=== PATIENT | male | born 1970 | race Caucasian/White ===

== ENCOUNTER 2019-11-25 12:14 | Emergency (ER) | payer SELFPAY ==
[~2019-11-25] VITALS: Ht 188 cm; Wt 108.1 kg
[2019-11-25 12:20] VITALS: BP 146/88
--- NOTE | 2019-11-25 12:35 | PHYS DOC ---
Past History Past Medical History: No Pertinent History Past Surgical History: No Surgical History Smoking: Cigarettes Alcohol Use: Rarely Drug Use: None General Adult EDM: Chief Complaint: LACERATION/AVULSION HPI: HPI: 49-year-old male presents with laceration to right index finger when patient was trying to open a can at his place of employment. 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 Patient reports he was unable to get bleeding well controlled and therefore presents to the ER for further evaluation. Patient reports last tetanus shot less than 5 years ago. Review of Systems: Review of Systems: Constitutional: Denies fever or chills Eyes: Denies redness or eye pain HENT: Denies nasal congestion or sore throat Respiratory: Denies cough or shortness of breath Cardiovascular: Denies chest pain or palpitations GI: Denies abdominal pain, nausea, or vomiting : Denies dysuria or hematuria Musculoskeletal: Denies back pain or joint pain Integument: Denies rash; reports laceration to right index finger Neurologic: Denies headache, focal weakness or sensory changes Complete systems were reviewed and found to be within normal limits, except as documented in this note. Allergies: Allergies: Allergies Coded Allergies Type Severity Reaction Last Updated Verified No Known Drug Allergies 11/25/19 No Physical Exam: PE: Constitutional: Well developed, well nourished, no acute distress, non-toxic appearance HENT: Normocephalic, atraumatic Eyes: Conjunctiva normal, no discharge Neck: Normal range of motion, no tenderness, supple Cardiovascular: Right radial pulses +2, cap refill less than 2 seconds Lungs & Thorax: No respiratory distress, equal chest rise and fall Skin: Warm, dry, no erythema, no rash Extremities: 1cm laceration to right index finger to lateral aspect to base of fingernail, no fingernail involvement, bleeding controlled. No tenderness, ROM intact Neurologic: Alert and oriented X 3, no focal deficits noted Psychologic: Affect normal, judgment normal EKG: EKG: [] Radiology/Procedures: Radiology/Procedures: [] Course & Med Decision Making: Course & Med Decision Making Patient presents with small laceration to right index finger. Wound well approximated. Tetanus up-to-date. Wound cleaned and then repaired with Dermabond skin glue. Patient stable for discharge with outpatient follow-up with PCP. Discussed findings and plan with patient, who acknowledges understanding and agreement. Tere Disclaimer: Tere Disclaimer: This electronic medical record was generated, in whole or in part, using a voice recognition dictation system. Laceration/Wound Repair Laceration/Wound Repair : Wound Location: upper extremity (right index finger) Wound's Depth, Shape: superficial, linear Wound Length (cm): 1 Wound Explored: clean Wound Debrided: minimal Wound Repaired With: Dermabond Progress Verbal consent obtained. Time out performed. Hand hygiene utilized. Wound cleaned with ChloraPrep. Wound well approximated with Dermabond. Patient tolerated procedure well and without difficulty. Departure Departure: Impression: Primary Impression: Finger laceration Qualified Codes: S61.210A - Laceration without foreign body of right index finger without damage to nail, initial encounter Disposition: 01 HOME, SELF-CARE Condition: STABLE Referrals: PCP,NO (PCP) Patient Instructions: Laceration Care, Adult, [id number] Additional Instructions: Do not soak your wound. You may shower. DO NOT use over the counter antibiotic ointment as it will eat through the skin glue. Use over the counter Tylenol and/or Ibuprofen for pain or discomfort. TAMEKA LAI DO Nov 25, 2019 12:35
== END 2019-11-25 12:40 | disposition home or self-care (01) ==
LOC: ER 12:14
DX: S61.210A Laceration without foreign body of right index finger without damage to nail, initial encounter (principal); F17.210 Nicotine dependence, cigarettes, uncomplicated; W26.8XXA Contact with other sharp object(s), not elsewhere classified, initial encounter; Y93.89 Activity, other specified; Y92.89 Other specified places as the place of occurrence of the external cause; Y99.8 Other external cause status
CPT/HCPCS: 12001; 99282